=== PATIENT | female | born 1995 | race American Indian/Alaskan Native ===

== ENCOUNTER 2017-01-23 05:29 | Emergency (ER) | payer OTHER ==
[2017-01-23 05:37] VITALS: BMI 20.5
[2017-01-23 05:44] VITALS: RESP 16; TEMP 98.7; O2SAT 100
[2017-01-23] MEDS ORDERED: TraMADol/Apap 37.5/325 mg Tab PO STA (05:48)
--- NOTE | 2017-01-23 05:50 | ED PDOC ---
Arrival/HPI - General Chief Complaint: Back Pain Time Seen by Provider: 01/23/17 05:32 Historian: Patient - History of Present Illness Narrative History of Present Illness (Text): 01/23/17 05:47 Veronica Alcala is a 21 year old female, with no significant past medical history , presents to the emergency department complaining of right low back pain since yesterday night. States that pain is worse with movement. Patient took Tylenol for pain for minimal relief. Denies any fever, chills, headache, difficulty breathing, nausea, vomiting, bowel/urinary incontinence, urinary symptoms, or any other complaints at this time. Time/Duration: Other (yesterday ) Symptom Onset: Gradual Symptom Course: Unchanged Severity Level: Mild Activities at Onset: Light Past Medical History - Provider Review Nursing Documentation Reviewed: Yes - Infectious Disease Hx of Infectious Diseases: None - Genitourinary/Gynecological Other/Comment: Ovarian cyst - Psychiatric Hx Substance Use: No - Surgical History Other/Comment: ovarian cyst removed 2010 - Anesthesia Hx Anesthesia: Yes Hx Anesthesia Reactions: No Hx Malignant Hyperthermia: No Family/Social History - Physician Review Nursing Documentation Reviewed: Yes Family/Social History: No Known Family HX Smoking Status: Never Smoked Hx Alcohol Use: Yes Frequency of alcohol use: Socially Hx Substance Use: No Allergies/Home Meds Allergies/Adverse Reactions: Allergies No Known Allergies Allergy (Verified 01/20/16 16:25) Review of Systems - Physician Review All systems were reviewed & negative as marked: Yes - Review of Systems Constitutional: Normal. absent: Fatigue, Fevers Respiratory: Normal. absent: SOB, Cough, Sputum Cardiovascular: Normal. absent: Chest Pain, Palpitations Gastrointestinal: Normal. absent: Abdominal Pain, Stool Changes Genitourinary Female: Normal. absent: Dysuria, Frequency, Hematuria Musculoskeletal: Back Pain (Right flank pain ) Neurological: Normal. absent: Headache, Dizziness Physical Exam Vital Signs Reviewed: Yes Vital Signs Temp Pulse Resp BP Pulse Ox 01/23/17 05:44 98.7 F 70 16 114/45 L 100 Temperature: Afebrile Blood Pressure: Normal Pulse: Regular Respiratory Rate: Normal Appearance: Positive for: Well-Appearing, Non-Toxic, Comfortable Pain Distress: None Mental Status: Positive for: Alert and Oriented X 3 - Systems Exam Head: Present: Atraumatic, Normocephalic Pupils: Present: PERRL Conjunctiva: Present: Normal Mouth: Present: Moist Mucous Membranes. No: Dry Respiratory/Chest: Present: Clear to Auscultation, Good Air Exchange. No: Respiratory Distress, Accessory Muscle Use Cardiovascular: Present: Regular Rate and Rhythm, Normal S1, S2. No: Murmurs Abdomen: Present: Normal Bowel Sounds. No: Tenderness, Distention, Peritoneal Signs, Rebound, Guarding Back: Present: CVA Tenderness (Tenderness to palpation R CVA ). No: Midline Tenderness, Paraspinal Tenderness, Pain with Leg Raise Neurological: Present: GCS=15, CN II-XII Intact, Speech Normal. No: Motor Func Grossly Intact, Normal Sensory Function Skin: Present: Warm, Dry, Normal Color. No: Rashes Psychiatric: Present: Alert, Oriented x 3, Normal Insight, Normal Concentration Medical Decision Making ED Course and Treatment: 01/23/17 05:51 Impression: A 21 year old female who presents to the emergency department complaining of right flank pain since yesterday. Differential Diagnosis include but are not limited to: UTI vs. Renal colic Plan: -- Toradol -- Ultracet -- POC urine pregancy -- Urinalysis -- Reassess and disposition Progress Notes: 01/23/17 06:54 XR is negative and urine is negative and patient is feeling better, consistent with muscular strain - will d/c on nsaid, muscle relaxant, and tramadol and f/u medical clinic. - Lab Interpretations Lab Results: Lab Results 01/23/17 05:50: Urine Color Yellow, Urine Appearance Clear, Urine pH 6.0, Ur Specific [place] 1.020, Urine Protein Negative, Urine Glucose (UA) Negative, Urine Ketones Negative, Urine Blood Negative, Urine Nitrate Negative, Urine Bilirubin Negative, Urine Urobilinogen 0.2, Ur Leukocyte Esterase Negative - RAD Interpretation Radiology Orders: 01/23/17 05:53 LS SPINE WITH OBL > 18 YRS OLD [RAD] Stat - Medication Orders Current Medication Orders: Discontinued Medications Ketorolac Tromethamine (Toradol) 60 mg IM STAT STA Stop: 01/23/17 05:47 Last Admin: 01/23/17 05:55 Dose: 60 mg Tramadol/Acetaminophen (Ultracet 37.5/325 Mg) 1 tab PO STAT STA Stop: 01/23/17 05:49 Last Admin: 01/23/17 05:55 Dose: 1 tab - Scribe Statement The provider has reviewed the documentation as recorded by the Thomasibe Mina Horn Provider Attestation: All medical record entries made by the Thomasibcaterina were at my direction and personally dictated by me. I have reviewed the chart and agree that the record accurately reflects my personal performance of the history, physical exam, medical decision making, and the department course for this patient. I have also personally directed, reviewed, and agree with the discharge instructions and disposition. Disposition/Present on Arrival - Present on Arrival Any Indicators Present on Arrival: No History of DVT/PE: No History of Uncontrolled Diabetes: No Urinary Catheter: No History of Decub. Ulcer: No History Surgical Site Infection Following: Obstetrical/Gynecological Surgery - Disposition Have Diagnosis and Disposition been Completed?: Yes Diagnosis: Low back pain Disposition: HOME/ ROUTINE Disposition Time: 06:55 Patient Plan: Discharge Condition: GOOD Discharge Instructions (ExitCare): Acute Low Back Pain (ED) Additional Instructions: Avoid heavy lifting. Take the medications as prescribed. Follow up with primary care. Return to the emergency department if any new concerning symptoms. Prescriptions: Baclofen [Lioresal] 1 cap PO TID PRN #15 tab PRN Reason: Pain, Moderate (4-7) Naproxen [Naprosyn] 500 mg PO BID PRN #20 tab PRN Reason: Pain traMADol [Ultram] 1 tab PO Q8H PRN #10 tab PRN Reason: Pain, Severe (8-10) Referrals: Yaakov Mcclain DO [Staff Provider] - Follow up with primary Forms: WORK NOTE
[2017-01-23 06:38] LABS: URINE BILIRUBIN NEGATIVE (NEGATIVE); URINE BLOOD NEGATIVE (NEGATIVE); URINE GLUCOSE (UA) NEGATIVE (NEGATIVE); URINE KETONE NEGATIVE (NEGATIVE); URINE LEUKOCYTE ESTERASE NEGATIVE Leu/uL (NEGATIVE); URINE PROTEIN NEGATIVE mg/dL (<30 mg/dL); URINE UROBILINOGEN 0.2 E.U./dL (<1 E.U./dL)
[2017-01-23 06:39] LABS: URINE APPEARANCE CLEAR (CLEAR); URINE COLOR YELLOW (YELLOW)
[2017-01-23 07:03] VITALS: BP 101/59; PULSE 57
--- NOTE | 2017-01-23 09:04 | RAD ---
PROCEDURE: Radiographs of the Lumbar Spine. HISTORY: low back pain COMPARISON: No prior. FINDINGS: BONES: Normal alignment. No listhesis. No fracture. DISC SPACES: Unremarkable. OTHER FINDINGS: None. IMPRESSION: Unremarkable radiographs of the lumbar spine.
== END 2017-01-23 07:11 | disposition home or self-care (01) ==
LOC: ED 05:29
DX: M54.5 Low back pain (principal)
CPT/HCPCS: 72110; 81003; 96372; 99283; J1885

== ENCOUNTER 2017-04-13 03:33 | Emergency (ER) | payer SELFPAY ==
[2017-04-13 03:40] VITALS: RESP 16; TEMP 98.3; O2SAT 99
[2017-04-13 03:46] VITALS: BMI 22.8
--- NOTE | 2017-04-13 03:51 | ED PDOC ---
Arrival/HPI - General Time Seen by Provider: 04/13/17 03:34 Historian: Patient - History of Present Illness Narrative History of Present Illness (Text): 04/13/17 03:47 Veronica Alcala is a 21 year old female, whose past medical history includes ovarian cyst, who presents to the Emergency department complaining of lower abdominal pain. Patient states her menstrual period started yesterday, but notes vaginal bleeding is heavier than usual with blood clots and associated lower abdominal cramping. Patient states she went through 2 pads and 1 tampon over 2 hours. Patient states she has not taken any medication for pain. Patient denies any fever, shortness of breath, nausea, vomiting, urinary symptoms, back pain, headache, dizziness, or any other complaints. Symptom Onset: Gradual Symptom Course: Unchanged Activities at Onset: Rest, Light Context: Home Past Medical History - Provider Review Nursing Documentation Reviewed: Yes - Infectious Disease Hx of Infectious Diseases: None - Genitourinary/Gynecological Other/Comment: Ovarian cyst - Psychiatric Hx Substance Use: No - Surgical History Other/Comment: ovarian cyst removed 2010 - Anesthesia Hx Anesthesia: Yes Hx Anesthesia Reactions: No Hx Malignant Hyperthermia: No Family/Social History - Physician Review Nursing Documentation Reviewed: Yes Family/Social History: Unknown Family HX Smoking Status: Never Smoked Hx Alcohol Use: Yes Hx Substance Use: No Allergies/Home Meds Allergies/Adverse Reactions: Allergies No Known Allergies Allergy (Verified 04/13/17 03:40) Home Medications: Home Meds Medication Instructions Recorded Confirmed No Known Home Med 04/13/17 04/13/17 Review of Systems - Physician Review All systems were reviewed & negative as marked: Yes - Review of Systems Constitutional: Normal. absent: Fevers Eyes: Normal ENT: Normal Respiratory: Normal. absent: SOB, Cough Cardiovascular: Normal. absent: Chest Pain Gastrointestinal: Abdominal Pain. absent: Diarrhea, Nausea, Vomiting Genitourinary Female: Vaginal Bleeding. absent: Dysuria, Frequency, Hematuria, Urine Output Changes Musculoskeletal: Normal. absent: Back Pain, Neck Pain Skin: Normal. absent: Rash Neurological: Normal. absent: Headache, Dizziness Endocrine: Normal Hemo/Lymphatic: Normal Psychiatric: Normal Physical Exam Vital Signs Reviewed: Yes Vital Signs Temp Pulse Resp BP Pulse Ox 04/13/17 03:40 98.3 F 79 16 118/81 99 Temperature: Afebrile Blood Pressure: Normal Pulse: Regular Respiratory Rate: Normal Appearance: Positive for: Well-Appearing, Non-Toxic, Comfortable Pain Distress: None Mental Status: Positive for: Alert and Oriented X 3 - Systems Exam Head: Present: Atraumatic, Normocephalic Pupils: Present: PERRL Extroacular Muscles: Present: EOMI Conjunctiva: Present: Normal Mouth: Present: Moist Mucous Membranes Neck: Present: Normal Range of Motion Respiratory/Chest: Present: Clear to Auscultation, Good Air Exchange. No: Respiratory Distress, Accessory Muscle Use Cardiovascular: Present: Regular Rate and Rhythm, Normal S1, S2. No: Murmurs Abdomen: Present: Normal Bowel Sounds. 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 No: Adenexal Tenderness, Cervical Motion Tendernes Back: Present: Normal Inspection Upper Extremity: Present: Normal Inspection. No: Cyanosis, Edema Lower Extremity: Present: Normal Inspection. No: Edema Neurological: Present: GCS=15, CN II-XII Intact, Speech Normal Skin: Present: Warm, Dry, Normal Color. No: Rashes Psychiatric: Present: Alert, Oriented x 3, Normal Insight, Normal Concentration Medical Decision Making ED Course and Treatment: 04/13/17 03:47 Impression: 21 year old female complaining of lower abdominal cramping and heavy vaginal bleeding. Differential Diagnosis included but are not limited to: dysmenorrhea vs. menorrhagia Plan: -- Labs, beta-HCG -- Urinalysis -- IV fluids -- Reassess and disposition Prior Visits: Notes and results from previous visits were reviewed. On 01/23/2017, pt was seen in the right lower back pain. Pt was d/c home. Progress Notes: 04/13/17 05:28 On reevaluation the patient feels better and is in no acute distress. I have discussed the results and plan with the patient, who expresses understanding. Patient given the opportunity to ask question, all questions were answered and there is agreement with the plan to discharge the patient home. Patient is stable for discharge. Patient was instructed to follow up with physician/clinic in 1-2 days or return if symptoms persist/worsen or new concerning symptoms arise. Re-evaluation Time: 05:28 Reassessment Condition: Re-examined, Improved - Lab Interpretations Lab Results: 04/13/17 04:14 04/13/17 04:14 Lab Results 04/13/17 04:14: Urine Color Yellow, Urine Appearance Sl cloudy, Urine pH 6.0, Ur Specific [place] >= 1.030, Urine Protein 30 H, Urine Glucose (UA) Negative, Urine Ketones Negative, Urine Blood Large H, Urine Nitrate Negative, Urine Bilirubin Negative, Urine Urobilinogen 0.2, Ur Leukocyte Esterase Negative, Urine RBC Tntc, Urine WBC 0 - 2, Ur Epithelial Cells 0 - 2, Urine HCG, Qual Negative 04/13/17 04:14: Beta HCG, Quant < 2.39 04/13/17 04:14: Sodium 140, Potassium 4.3, Chloride 105, Carbon Dioxide 24, Anion Gap 15, BUN 12, Creatinine 0.6, Est GFR ( Amer) > 60, Est GFR (Non- Af Amer) > 60, Random Glucose 95, Calcium 9.1, Total Bilirubin 0.3, AST 27, ALT 30, Alkaline Phosphatase 47, Total Protein 7.9, Albumin 4.3, Globulin 3.6, Albumin/Globulin Ratio 1.2 04/13/17 04:14: PT 11.2, INR 1.04, APTT 26.4 04/13/17 04:14: WBC 5.7, RBC 4.43, Hgb 10.9 L, Hct 33.8 L, MCV 76.3 L, MCH 24.6 L, MCHC 32.2, RDW 18.1 H, Plt Count 307, MPV 10.4, Gran % 44.7 L, Lymph % (Auto ) 40.3 H, [place] % (Auto) 11.3 H, Eos % (Auto) 3.3, Baso % (Auto) 0.4, Gran # 2.54 , Lymph # 2.3, [place] # 0.6, Eos # 0.2, Baso # 0.02 I have reviewed the lab results: Yes - Medication Orders Current Medication Orders: Sodium Chloride (Sodium Chloride 0.9%) 1,000 mls @ 100 mls/hr IV .Q10H STA Stop: 04/13/17 13:52 Last Admin: 04/13/17 04:11 Dose: 100 mls/hr - Scribe Statement The provider has reviewed the documentation as recorded by the Birdie Lewis Provider Scribe Attestation: All medical record entries made by the Thomasibcaterina were at my direction and personally dictated by me. I have reviewed the chart and agree that the record accurately reflects my personal performance of the history, physical exam, medical decision making, and the department course for this patient. I have also personally directed, reviewed, and agree with the discharge instructions and disposition. Disposition/Present on Arrival - Present on Arrival Any Indicators Present on Arrival: No History of DVT/PE: No History of Uncontrolled Diabetes: No Urinary Catheter: No History Surgical Site Infection Followin - Disposition Have Diagnosis and Disposition been Completed?: Yes Diagnosis: Dysmenorrhea Disposition: HOME/ ROUTINE Disposition Time: 05:28 Patient Problems: Current Active Problems Problem Status Onset Dysmenorrhea Acute Condition: GOOD Discharge Instructions (ExitCare): Dysmenorrhea (ED) Additional Instructions: follow up with your nurse gynecology today
[2017-04-13] MEDS ORDERED: Sodium Chloride 0.9% 1,000 ML IV STA (03:53)
[2017-04-13 04:29] LABS: BASO # 0.02 K/mm3 (0.0-2.0); BASO % 0.4 % (0.0-3.0); EOS # 0.2 (0.0-0.7); EOS % 3.3 % (1.5-5.0); GRAN # 2.54 (1.4-6.5); GRAN % 44.7 % (50.0-68.0); HEMOGLOBIN 10.9 gm/dL (12.0-16.0); LYMPH # 2.3 (1.2-3.4); LYMPH % 40.3 % (22.0-35.0); MEAN CELL VOLUME 76.3 fL (80.0-105.0); MEAN CORPUSCULAR HEMOGLOBIN 24.6 pg (25.0-35.0); MEAN CORPUSCULAR HGB CONC 32.2 g/dl (31.0-37.0); MEAN PLATELET VOLUME 10.4 fl (7.0-11.0); MONO # 0.6 (0.1-0.6); MONO % 11.3 % (1.0-6.0); PLATELET COUNT 307 10^3/uL (120.0-450.0); RBC 4.43 10^6/uL (3.5-6.1); RED CELL DISTRIBUTION WIDTH 18.1 % (11.5-14.5); WHITE BLOOD COUNT 5.7 10^3/ul (4.5-11.0)
[2017-04-13 04:30] LABS: URINE BILIRUBIN NEGATIVE (NEGATIVE); URINE BLOOD LARGE (NEGATIVE); URINE GLUCOSE (UA) NEGATIVE (NEGATIVE); URINE LEUKOCYTE ESTERASE NEGATIVE Leu/uL (NEGATIVE); URINE NITRATE NEGATIVE (NEGATIVE); URINE PROTEIN 30 mg/dL (<30 mg/dL); URINE UROBILINOGEN 0.2 E.U./dL (<1 E.U./dL)
[2017-04-13 04:33] LABS: URINE APPEARANCE SL CLOUDY (CLEAR); URINE COLOR YELLOW (YELLOW)
[2017-04-13 04:36] LABS: HCG,QUALITATIVE URINE NEGATIVE (NEGATIVE)
[2017-04-13 04:38] LABS: URINE EPITHELIAL CELLS 0 - 2 /hpf (0-5); URINE RBC TNTC /hpf (0-2); URINE WBC 0 - 2 /hpf (0-6)
[2017-04-13 04:42] LABS: INR 1.04 (0.93-1.08); PARTIAL THROMBOPLASTIN TIME 26.4 Seconds (23.7-30.8); PROTHROMBIN TIME 11.2 Seconds (9.9-11.8)
[2017-04-13 04:48] LABS: ALB/GLOB RATIO 1.2 (1.1-1.8); ALBUMIN 4.3 g/dL (3.0-4.8); ALT/SGPT 30 U/L (7-56); AST/SGOT 27 U/L (15-39); BLOOD UREA NITROGEN 12 mg/dL (7-21); CALCIUM 9.1 mg/dL (8.4-10.5); GFR AFRICAN-AMERICAN > 60; GFR NON-AFRICAN AMERICAN > 60
[2017-04-13 05:41] VITALS: BP 118/72; PULSE 70
== END 2017-04-13 05:41 | disposition home or self-care (01) ==
LOC: ED 03:33
DX: N94.6 Dysmenorrhea, unspecified (principal)
CPT/HCPCS: 80053; 81001; 84702; 84703; 85025; 85610; 85730; 99284; J7040

== ENCOUNTER 2017-07-20 05:18 | Emergency (ER) | payer OTHER ==
[2017-07-20 05:18] VITALS: BMI 22.8
[2017-07-20] MEDS ORDERED: Sodium Chloride 0.9% 1,000 ML IV SCH (05:45)
--- NOTE | 2017-07-20 05:48 | ED PDOC ---
Arrival/HPI - General Chief Complaint: Headache Time Seen by Provider: 07/20/17 05:26 Historian: Patient - History of Present Illness Narrative History of Present Illness (Text): 07/20/17 05:45 Veronica Alcala is a 21 year old female, 11 weeks and whose past medical history includes ovarian cyst, who presents to the emergency department complaining of right sided headache and back pain for a few hours. Patient denies any fever, chills, chest pain, shortness of breath, nausea, vomiting, diarrhea, urinary symptoms, neck pain, dizziness, or any other complaints. Time/Duration: 4-6 hours Symptom Onset: Gradual Symptom Course: Unchanged Severity Level: Mild Activities at Onset: Rest Context: Home Past Medical History - Provider Review Nursing Documentation Reviewed: Yes - Infectious Disease Hx of Infectious Diseases: None - Genitourinary/Gynecological Other/Comment: Ovarian cyst - Psychiatric Hx Substance Use: No - Surgical History Other/Comment: ovarian cyst removed 2010 - Anesthesia Hx Anesthesia: Yes Hx Anesthesia Reactions: No Hx Malignant Hyperthermia: No Family/Social History - Physician Review Nursing Documentation Reviewed: Yes Family/Social History: No Known Family HX Smoking Status: Never Smoked Hx Alcohol Use: No Hx Substance Use: No Allergies/Home Meds Allergies/Adverse Reactions: Allergies No Known Allergies Allergy (Verified 07/20/17 05:38) Review of Systems - Review of Systems Constitutional: absent: Fevers, Night Sweats Eyes: absent: Vision Changes ENT: absent: Hearing Changes Respiratory: absent: SOB, Cough Cardiovascular: absent: Chest Pain Gastrointestinal: absent: Abdominal Pain Genitourinary Female: absent: Dysuria, Frequency Musculoskeletal: Back Pain. absent: Arthralgias Skin: absent: Rash, Pruritis Neurological: Headache Endocrine: absent: Diaphoresis Hemo/Lymphatic: absent: Adenopathy Psychiatric: absent: Anxiety Physical Exam Vital Signs Reviewed: Yes Vital Signs Temp Pulse Resp BP Pulse Ox 07/20/17 07:13 72 18 100/60 98 07/20/17 06:01 98.1 F 82 16 100/61 98 - Systems Exam Head: Present: Atraumatic, Normocephalic Pupils: Present: PERRL Extroacular Muscles: Present: EOMI Conjunctiva: Present: Normal Mouth: Present: Moist Mucous Membranes Neck: Present: Normal Range of Motion Respiratory/Chest: Present: Clear to Auscultation, Good Air Exchange. No: Respiratory Distress, Accessory Muscle Use Cardiovascular: Present: Regular Rate and Rhythm, Normal S1, S2. No: Murmurs Abdomen: Present: Normal Bowel Sounds. No: Tenderness, Distention, Peritoneal Signs Back: Present: Normal Inspection Upper Extremity: Present: Normal Inspection. No: Cyanosis, Edema Lower Extremity: Present: Normal Inspection. No: Edema Neurological: Present: GCS=15, CN II-XII Intact, Speech Normal Skin: Present: Warm, Dry, Normal Color. No: Rashes Psychiatric: Present: Alert, Oriented x 3, Normal Insight, Normal Concentration Medical Decision Making ED Course and Treatment: 07/20/17 05:48 Impression: 21 year old female complaining of right-sided headache and back pain for a few hours. Differential Diagnosis included but are not limited to: Plan: -- Urinalysis -- Reglan and IV fluids -- Reassess and disposition Prior Visits: Notes and results from previous visits were reviewed. Patient last seen in the ED on 04/13/17 for lower abdominal pain. Patient was discharged home. Progress Notes: Re-evaluation Time: 06:45 Reassessment Condition: Re-examined, Improved - Lab Interpretations Microbiology Results: Microbiology Results 07/20/17 03:51 Urine,Clean Catch Urine Culture - Final No Growth (<1,000 CFU/ML) Lab Results: Lab Results 07/20/17 05:45: Urine Color Yellow, Urine Appearance Sl cloudy, Urine pH 7.0, Ur Specific [place] 1.020, Urine Protein Negative, Urine Glucose (UA) Negative, Urine Ketones Negative, Urine Blood Negative, Urine Nitrate Negative, Urine Bilirubin Negative, Urine Urobilinogen 0.2, Ur Leukocyte Esterase Small H, Urine RBC 0 - 2, Urine WBC 5 - 10, Ur Epithelial Cells 1 - 3, Urine Bacteria Small I have reviewed the lab results: Yes - Medication Orders Current Medication Orders: Discontinued Medications Acetaminophen (Tylenol 325mg Tab) 650 mg PO STAT STA Stop: 07/20/17 06:52 Last Admin: 07/20/17 07:12 Dose: 650 mg MAR Pain/Vitals Document 07/20/17 07:12 SS (Rec: 07/20/17 07:12 SS [id number]) Pain Reassessment Is This A Pain ReAssessment? No Sleep Is patient sleeping during reassessment? 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 Cephalexin Monohydrate (Keflex) 500 mg PO STAT STA PRN Reason: Protocol Stop: 07/20/17 06:54 Last Admin: 07/20/17 07:12 Dose: 500 mg Sodium Chloride (Sodium Chloride 0.9%) 1,000 mls @ 80 mls/hr IV .[id number] KEI Last Admin: 07/20/17 06:09 Dose: 80 mls/hr eMAR Start Stop Document 07/20/17 06:09 SS (Rec: 07/20/17 06:10 SS [id number]) Intravenous Solution Start Date 07/20/17 Start Time 06:09 End Date 07/20/17 End time 07:09 Total Infusion Time 60 Metoclopramide HCl (Reglan) 10 mg IVP ONCE ONE Stop: 07/20/17 05:42 Last Admin: 07/20/17 06:09 Dose: 10 mg IVP Administration Document 07/20/17 06:09 SS (Rec: 07/20/17 06:09 SS [id number]) Charges for Administration # of IVP Administrations 1 - Scribe Statement The provider has reviewed the documentation as recorded by the Birdie Villalta Provider Scribe Attestation: All medical record entries made by the Thomasibcaterina were at my direction and personally dictated by me. I have reviewed the chart and agree that the record accurately reflects my personal performance of the history, physical exam, medical decision making, and the department course for this patient. I have also personally directed, reviewed, and agree with the discharge instructions and disposition. Disposition/Present on Arrival - Present on Arrival Any Indicators Present on Arrival: No History of DVT/PE: No History of Uncontrolled Diabetes: No Urinary Catheter: No History of Decub. Ulcer: No History Surgical Site Infection Following: None - Disposition Have Diagnosis and Disposition been Completed?: Yes Diagnosis: Migraine, UTI (urinary tract infection) Disposition: HOME/ ROUTINE Disposition Time: 06:50 Condition: GOOD Discharge Instructions (ExitCare): Migraine Headache (ED), Urinary Tract Infection in (ED) Prescriptions: Cephalexin [Keflex] 500 mg PO BID #14 capsule Referrals: [facility] Carolina Zhu, [Non-Staff] - Follow up with primary Forms: [facility] ([place])
[2017-07-20 06:13] LABS: URINE BILIRUBIN NEGATIVE (NEGATIVE); URINE BLOOD NEGATIVE (NEGATIVE); URINE GLUCOSE (UA) NEGATIVE (NEGATIVE); URINE KETONE NEGATIVE (NEGATIVE); URINE LEUKOCYTE ESTERASE SMALL Leu/uL (NEGATIVE); URINE PROTEIN NEGATIVE mg/dL (<30 mg/dL); URINE UROBILINOGEN 0.2 E.U./dL (<1 E.U./dL)
[2017-07-20 06:15] LABS: URINE APPEARANCE SL CLOUDY (CLEAR); URINE COLOR YELLOW (YELLOW)
[2017-07-20 06:23] VITALS: TEMP 98.1; O2SAT 98
[2017-07-20 06:27] LABS: URINE RBC 0 - 2 /hpf (0-2)
[2017-07-20 06:28] LABS: URINE BACTERIA SMALL (NEG)
[2017-07-20 07:13] VITALS: BP 100/60; PULSE 72; RESP 18
== END 2017-07-20 07:14 | disposition home or self-care (01) ==
LOC: ED 05:18
DX: O23.41 Unspecified infection of urinary tract in pregnancy, first trimester (principal); O26.891 Other specified pregnancy related conditions, first trimester; G43.909 Migraine, unspecified, not intractable, without status migrainosus; Z3A.11 11 weeks gestation of pregnancy
CPT/HCPCS: 81001; 87086; 96361; 96374; 99285; J2765; J7040

== ENCOUNTER 2017-09-03 20:38 | Emergency (ER) | payer OTHER ==
[2017-09-03 20:41] VITALS: BMI 24.1
[2017-09-03 20:43] VITALS: TEMP 98.5
--- NOTE | 2017-09-03 21:00 | ED PDOC ---
Arrival/HPI - General Chief Complaint: Female Genitourinary Time Seen by Provider: 09/03/17 20:50 Historian: Patient - History of Present Illness Narrative History of Present Illness (Text): 09/03/17 20:56 A 22 year old female with , who is 17 weeks , presents to the emergency department complaining of lower abdominal pain for 1 week. Patient states her pain worsened today causing her to come in for further evaluation. Patient denies any fever, chills, nausea, vomiting, diarrhea, vaginal bleeding, vaginal discharge, chest pain, shortness of breath or any other complaints. Time/Duration: 1 week Symptom Course: Worsening Quality: Other Context: Home Past Medical History - Provider Review Nursing Documentation Reviewed: Yes - Infectious Disease Hx of Infectious Diseases: None - Cardiac Hx Cardiac Disorders: No - Pulmonary Hx Respiratory Disorders: No - Neurological Hx Neurological Disorder: No - HEENT Hx HEENT Disorder: No - Renal Hx Renal Disorder: No - Endocrine/Metabolic Hx Endocrine Disorders: No - Hematological/Oncological Hx Blood Disorders: No - Integumentary Hx Dermatological Disorder: No - Musculoskeletal/Rheumatological Hx Musculoskeletal Disorders: No - Gastrointestinal Hx Gastrointestinal Disorders: No - Genitourinary/Gynecological Other/Comment: Ovarian cyst - Psychiatric Hx Psychophysiologic Disorder: No Hx Substance Use: No - Surgical History Other/Comment: ovarian cyst removed 2010 - Anesthesia Hx Anesthesia: Yes Hx Anesthesia Reactions: No Hx Malignant Hyperthermia: No Family/Social History - Physician Review Nursing Documentation Reviewed: Yes Family/Social History: No Known Family HX Smoking Status: Never Smoked Hx Alcohol Use: No Hx Substance Use: No Allergies/Home Meds Allergies/Adverse Reactions: Allergies No Known Allergies Allergy (Verified 09/03/17 20:41) Home Medications: Home Meds Medication Instructions Recorded Confirmed Folic Acid 0 mg PO DAILY 09/03/17 09/03/17 Vit 108/Iron/Folic AC 1 each PO DAILY 09/03/17 09/03/17 [ One Tablet] Review of Systems - Physician Review All systems were reviewed & negative as marked: Yes - Review of Systems Constitutional: absent: Fevers, Night Sweats Respiratory: absent: SOB Cardiovascular: absent: Chest Pain Gastrointestinal: Abdominal Pain. absent: Diarrhea, Nausea, Vomiting Genitourinary Female: absent: Vaginal Bleeding, Vaginal Discharge Physical Exam Vital Signs Reviewed: Yes Vital Signs Temp Pulse Resp BP Pulse Ox 09/03/17 22:37 80 16 103/87 100 09/03/17 20:43 98.5 F 77 19 102/61 98 09/03/17 20:42 98.5 F 78 17 102/61 98 Temperature: Afebrile Blood Pressure: Normal Pulse: Regular Respiratory Rate: Normal Appearance: Positive for: Well-Appearing, Non-Toxic, Comfortable Pain Distress: None Mental Status: Positive for: Alert and Oriented X 3 - Systems Exam Head: Present: Atraumatic, Normocephalic Pupils: Present: PERRL Extroacular Muscles: Present: EOMI Conjunctiva: Present: Normal Mouth: Present: Moist Mucous Membranes Neck: Present: Normal Range of Motion Respiratory/Chest: Present: Clear to Auscultation, Good Air Exchange. No: Respiratory Distress, Accessory Muscle Use Cardiovascular: Present: Regular Rate and Rhythm, Normal S1, S2. No: Murmurs Abdomen: Present: Tenderness (Minimal suprapubic tenderness), Normal Bowel Sounds. No: Distention, Peritoneal Signs, Rebound, Guarding Back: Present: Normal Inspection Upper Extremity: Present: Normal Inspection. No: Cyanosis, Edema Lower Extremity: Present: Normal Inspection. No: Edema Neurological: Present: GCS=15, CN II-XII Intact, Speech Normal Skin: Present: Warm, Dry, Normal Color. No: Rashes Psychiatric: Present: Alert, Oriented x 3, Normal Insight, Normal Concentration Medical Decision Making ED Course and Treatment: 09/03/17 20:56 Impression: A 22 year old female, 17 weeks , with suprapubic abdominal pain. Plan: -- Transvaginal ultrasound -- Labs -- Urinalysis -- Reassess and disposition Progress Notes: Report Date: 09/03/2017 21:35 EXAM: US After First Trimester, Transabdominal Dictated and Authenticated by: Alcon Beltre MD IMPRESSION: Single live intrauterine gestation. 09/04/17 11:31 iup confirmed pain improved. urine with asymptomatic bacteruria will treat as pt . return rpecautions advised. - Lab Interpretations Lab Results: 09/03/17 21:05 09/03/17 21:05 Lab Results 09/03/17 22:04: Urine Color Yellow, Urine Appearance Sl cloudy, Urine pH 6.5, Ur Specific [place] 1.020, Urine Protein Negative, Urine Glucose (UA) Negative, Urine Ketones Negative, Urine Blood Negative, Urine Nitrate Negative, Urine Bilirubin Negative, Urine Urobilinogen 0.2, Ur Leukocyte Esterase Small H, Urine RBC 0 - 2, Urine WBC 2 - 5, Ur Epithelial Cells 4 - 5, Amorphous Sediment Few, Urine Bacteria Few, Urine HCG, Qual Positive 09/03/17 21:05: Beta HCG, Quant [id number] H 09/03/17 21:05: Sodium 136, Potassium 3.9, Chloride 104, Carbon Dioxide 22, Anion Gap 14, BUN 6 L, Creatinine 0.5 L, Est GFR ( Amer) > 60, Est GFR ( Non-Af Amer) > 60, Random Glucose 79, Calcium 9.2, Total Bilirubin 0.3, AST 24, ALT 24, Alkaline Phosphatase 35 L, Total Protein 7.1, Albumin 3.8, Globulin 3.4 , Albumin/Globulin Ratio 1.1 09/03/17 21:05: PT 12.0, INR 1.10 H, APTT 28.7 09/03/17 21:05: WBC 8.0 D, RBC 3.98, Hgb 11.7 L, Hct 33.9 L, MCV 85.2, MCH 29.4 , MCHC 34.5, RDW 15.8 H, Plt Count 214, MPV 10.1, Gran % 63.7, Lymph % (Auto) 24.6, Fisher % (Auto) 8.5 H, Eos % (Auto) 2.9, Baso % (Auto) 0.3, Gran # 5.08, Lymph # 2.0, Fisher # 0.7 H, Eos # 0.2, Baso # 0.02 I have reviewed the lab results: Yes - RAD Interpretation Radiology Orders: 09/03/17 20:51 AGE [US] Stat - Medication Orders Current Medication Orders: Discontinued Medications Acetaminophen (Tylenol 325mg Tab) 650 mg PO STAT STA Stop: 09/03/17 21:37 Last Admin: 09/03/17 21:59 Dose: 650 mg MAR Pain/Vitals Document 09/03/17 21:59 HI (Rec: 09/03/17 21:59 HI [id number]) Pain Reassessment Is This A Pain ReAssessment? No Sleep Is patient sleeping during reassessment? No Presence of Pain Presence of Pain Yes - Scribe Statement The provider has reviewed the documentation as recorded by the Thomasibe Celestina Powell Provider Scribe Attestation: All medical record entries made by the Scribe were at my direction and personally dictated by me. I have reviewed the chart and agree that the record accurately reflects my personal performance of the history, physical exam, medical decision making, and the department course for this patient. I have also personally directed, reviewed, and agree with the discharge instructions and disposition. Disposition/Present on Arrival - Present on Arrival Any Indicators Present on Arrival: No History of DVT/PE: No History of Uncontrolled Diabetes: No Urinary Catheter: No History of Decub. Ulcer: No History Surgical Site Infection Following: None - Disposition Have Diagnosis and Disposition been Completed?: Yes Diagnosis: Threatened Disposition: HOME/ ROUTINE Disposition Time: 07:00 Condition: STABLE Discharge Instructions (ExitCare): Threatened Miscarriage (ED), Urinary Tract Infection in (ED) Additional Instructions: follow up with your obgyn. return to er with any worsening symptoms or concerns. Prescriptions: Cefpodoxime [Vantin] 100 mg PO BID #14 tab [facility] [[facility]] - Follow up with primary Cody Tolliver MD [Staff Provider] - Follow up with primary Forms: [employer] ([place]), WORK NOTE
[2017-09-03 21:27] LABS: BASO # 0.02 K/mm3 (0.0-2.0); BASO % 0.3 % (0.0-3.0); EOS # 0.2 (0.0-0.7); EOS % 2.9 % (1.5-5.0); GRAN # 5.08 (1.4-6.5); GRAN % 63.7 % (50.0-68.0); HEMATOCRIT 33.9 % (36.0-48.0); LYMPH % 24.6 % (22.0-35.0); MEAN CELL VOLUME 85.2 fl (80.0-105.0); MEAN CORPUSCULAR HEMOGLOBIN 29.4 pg (25.0-35.0); MEAN CORPUSCULAR HGB CONC 34.5 g/dl (31.0-37.0); MEAN PLATELET VOLUME 10.1 fl (7.0-11.0); MONO # 0.7 (0.1-0.6); MONO % 8.5 % (1.0-6.0); RED CELL DISTRIBUTION WIDTH 15.8 % (11.5-14.5)
[2017-09-03 21:33] LABS: INR 1.1 (0.93-1.08); PARTIAL THROMBOPLASTIN TIME 28.7 Seconds (25.1-36.5)
--- NOTE | 2017-09-03 21:35 | US ---
EXAM: US After First Trimester, Transabdominal CLINICAL HISTORY: 22 years old, female; Pain; complicated by abdominal or pelvic pain; Generalized abdominal pain; Second trimester; Gestational age or lmp: 04/09/2017; ; Additional info: Abd pain and prengnat TECHNIQUE: Real-time transabdominal obstetrical ultrasound of the maternal pelvis and a second or third trimester with image documentation. COMPARISON: No relevant prior studies available. FINDINGS: Fetus: Single live intrauterine gestation. Heart rate: heart rate of 153 beats per minute. Presentation: Transverse. Placenta: Anterior placenta. Amniotic fluid: Normal. Anatomy: No gross anomaly is appreciated. BIOMETRICS Gestational age by US: Estimated gestational age of 18 weeks 3 days by measurements. EFW: Estimated weight of 240 g. BPD: 4.0 cm, correlating with 18 weeks 0 days. HC: 15.5 cm, correlating with 18 weeks 3 days. AC: 13.0 cm, correlating with 18 weeks 4 days. FL: 2.7 cm, correlating with 18 weeks 3 days. MATERNAL: Uterus: Unremarkable. No myometrial mass. Cervix: No cervical dilatation or effacement. Adnexa: Ovaries not visualized. No adnexal masses. Free fluid: No significant free fluid. Other findings: No cardiac activity detected. IMPRESSION: 1. Single live intrauterine gestation.
[2017-09-03 21:37] LABS: ALB/GLOB RATIO 1.1 (1.1-1.8); ALKALINE PHOSPHATASE 35 U/L (38-126); ALT/SGPT 24 U/L (7-56); AST/SGOT 24 U/L (14-36); BILIRUBIN,TOTAL 0.3 mg/dL (0.2-1.3); BLOOD UREA NITROGEN 6 mg/dL (7-21); CALCIUM 9.2 mg/dL (8.4-10.5); CARBON DIOXIDE 22 mmol/L (21-33); CHLORIDE 104 mmol/L (98-107); GFR AFRICAN-AMERICAN > 60; GLUCOSE,RANDOM 79 mg/dL (70-110); POTASSIUM 3.9 mmol/L (3.6-5.0); SODIUM 136 mmol/L (132-148); TOTAL PROTEIN 7.1 g/dL (5.8-8.3)
[2017-09-03 22:14] LABS: PH,URINE 6.5 (4.7-8.0); URINE BILIRUBIN NEGATIVE (NEGATIVE); URINE BLOOD NEGATIVE (NEGATIVE); URINE GLUCOSE (UA) NEGATIVE (NEGATIVE); URINE KETONE NEGATIVE (NEGATIVE); URINE LEUKOCYTE ESTERASE SMALL Leu/uL (NEGATIVE); URINE PROTEIN NEGATIVE mg/dL (<30 mg/dL); URINE UROBILINOGEN 0.2 E.U./dL (<1 E.U./dL)
[2017-09-03 22:30] LABS: URINE APPEARANCE SL CLOUDY (CLEAR); URINE COLOR YELLOW (YELLOW)
[2017-09-03 22:32] LABS: URINE AMORPHOUS SEDIMENT FEW; URINE BACTERIA FEW (NEG); URINE RBC 0 - 2 /hpf (0-2)
[2017-09-03 22:43] VITALS: BP 103/87; PULSE 80; RESP 16; O2SAT 100
== END 2017-09-03 22:43 | disposition home or self-care (01) ==
LOC: ED 20:38
DX: O20.0 Threatened abortion (principal); Z3A.17 17 weeks gestation of pregnancy

== ENCOUNTER 2017-12-12 08:17 | Emergency (ER) | payer OTHER ==
[2017-12-12 08:36] VITALS: BMI 27.2
[2017-12-12 08:45] VITALS: RESP 18; TEMP 98.1
[2017-12-12] MEDS ORDERED: Amoxicillin-Clav 875-125 mg Tab PO STA (09:20)
--- NOTE | 2017-12-12 09:20 | ED PDOC ---
Arrival/HPI - General Chief Complaint: Abnormal Skin Integrity Time Seen by Provider: 12/12/17 09:09 Historian: Patient - History of Present Illness Narrative History of Present Illness (Text): 12/12/17 09:10 22 y/o female, no significant pmh, nkda, approx. 32 weeks , c/o rt. buttock region abscess x 3 days. Pt. stated that she was shaving, noted to have a painful lump about 2 days ago, no fever or chills, no perianal pain, no night sweat, no rash, no chills, no change in vision, no pelvic pain, no vaginal bleeding or abdominal pain, no other medical or psychological complaints. Past Medical History - Provider Review Nursing Documentation Reviewed: Yes - Infectious Disease Hx of Infectious Diseases: None - Cardiac Hx Cardiac Disorders: No - Pulmonary Hx Respiratory Disorders: No - Neurological Hx Neurological Disorder: No - HEENT Hx HEENT Disorder: No - Renal Hx Renal Disorder: No - Endocrine/Metabolic Hx Endocrine Disorders: No - Hematological/Oncological Hx Blood Disorders: No - Integumentary Hx Dermatological Disorder: No - Musculoskeletal/Rheumatological Hx Musculoskeletal Disorders: No - Gastrointestinal Hx Gastrointestinal Disorders: No - Genitourinary/Gynecological Other/Comment: Ovarian cyst - Psychiatric Hx Psychophysiologic Disorder: No Hx Substance Use: No - Surgical History Other/Comment: ovarian cyst removed 2010 - Anesthesia Hx Anesthesia: Yes Hx Anesthesia Reactions: No Hx Malignant Hyperthermia: No Family/Social History - Physician Review Nursing Documentation Reviewed: Yes Family/Social History: Unknown Family HX Smoking Status: Never Smoked Hx Alcohol Use: No Hx Substance Use: No Allergies/Home Meds Allergies/Adverse Reactions: Allergies No Known Allergies Allergy (Verified 09/27/17 21:31) Home Medications: Home Meds Medication Instructions Recorded Confirmed Vit 108/Iron/Folic AC 1 each PO DAILY 09/03/17 12/12/17 [ One Tablet] Review of Systems - Review of Systems Constitutional: absent: Fatigue, Fevers Eyes: absent: Vision Changes ENT: absent: Hearing Changes Respiratory: absent: SOB, Cough Cardiovascular: absent: Chest Pain Gastrointestinal: absent: Abdominal Pain, Nausea, Vomiting Skin: Skin Lesions, Abscess. absent: Rash, Pruritis, Laceration, Ulcer, Cellulitis Neurological: absent: Headache Psychiatric: absent: Anxiety, Depression, Suicidal Ideation Physical Exam Vital Signs Reviewed: Yes Vital Signs Temp Pulse Resp BP Pulse Ox 12/12/17 08:32 98.1 F 88 18 102/62 99 Temperature: Afebrile Blood Pressure: Normal Pulse: Regular Respiratory Rate: Normal Appearance: Positive for: Well-Appearing, Non-Toxic, Comfortable Pain Distress: Mild Mental Status: Positive for: Alert and Oriented X 3 - Systems Exam Head: Present: Atraumatic, Normocephalic Pupils: Present: PERRL Extroacular Muscles: Present: EOMI Conjunctiva: Present: Normal Mouth: Present: Moist Mucous Membranes Neck: Present: Normal Range of Motion Respiratory/Chest: Present: Clear to Auscultation, Good Air Exchange. No: Respiratory Distress, Accessory Muscle Use Cardiovascular: Present: Regular Rate and Rhythm, Normal S1, S2. No: Murmurs Abdomen: Present: Normal Bowel Sounds. No: Tenderness, Distention, Peritoneal Signs Genitourinary/Pelvic Exam: Present: Other (pt. declined. ) Back: Present: Normal Inspection Upper Extremity: Present: Normal Inspection. No: Cyanosis, Edema Lower Extremity: Present: Normal Inspection. 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 2cm diameter fluctuant abscess noted on rt. buttock region with no perinal abscess, no cellulitis, no streaking, no ulcers, no other absces noted on the thigh/pubic or underwear region. ), Normal Color Psychiatric: Present: Alert, Oriented x 3, Normal Insight, Normal Concentration Medical Decision Making ED Course and Treatment: 12/12/17 09:24 -augmentin/tylenol -wound culture -sensation intact 12/12/17 10:32 -Pt. has no urinary symptoms, will be placed on makayla augmentin. -Sensation intact, motor 5/5, wound irrigated with normal saline, clean with Betadine, sterile procedure as usual, #11 incision made with approx. 3cc of yellow fluctuant abscess drained, wound culture obtained, plain 1/2" packing inserted, hemostasis obtained, gauze dressing, sensation intact, motor 5/5, minimal blood loss less than 2cc, pt. tolerated the procedure well with no complication. Pain decreased and pt. feel much better. Pt. has no pelvic or abdominal pain or vaginal bleeding. -Discharge home with augmentin, tylenol, dressing and packing needs to be change on day 2 which you can see your own pmd/general surgeon/obgyn or return to the ER for wound check, follow up on the wound culture as well from the ER, return to the ER for any new or worsening signs or symptoms. - Medication Orders Current Medication Orders: Discontinued Medications Acetaminophen (Tylenol 325mg Tab) 650 mg PO STAT STA Stop: 12/12/17 09:21 Last Admin: 12/12/17 10:09 Dose: 650 mg MAR Pain/Vitals Document 12/12/17 10:09 EQ (Rec: 12/12/17 10:10 EQ [id number]) Pain Reassessment Is This A Pain ReAssessment? No Sleep Is patient sleeping during reassessment? No Presence of Pain Presence of Pain Yes Pain Scale Used Pain Scale Used Numeric Location Pain Location Body Site groin Description Constant Intensity 7 Scale Used Numeric Pain Behavior Facial Grimacing Aggravating Factors Changing Position Alleviating Factors Medication Amoxicillin/Clavulanate Potassium (Augmentin 875 Mg-125 Mg Tab) 1 tab PO STAT STA PRN Reason: Protocol Stop: 12/12/17 09:21 Last Admin: 12/12/17 10:09 Dose: 1 tab - PA / [employer]RARY [employer]CULATION DEPARTMENT CHIEF / Resident Statement MD/DO has reviewed & agrees with the documentation as recorded. Disposition/Present on Arrival - Present on Arrival Any Indicators Present on Arrival: No History of DVT/PE: No History of Uncontrolled Diabetes: No Urinary Catheter: No History of Decub. Ulcer: No History Surgical Site Infection Following: None - Disposition Have Diagnosis and Disposition been Completed?: Yes Diagnosis: Abscess Disposition: HOME/ ROUTINE Disposition Time: 09:27 Patient Plan: Discharge Condition: IMPROVED Discharge Instructions (ExitCare): Skin Abscess, Abscess Incision and Drainage (DC) Additional Instructions: -Discharge home with augmentin, tylenol, dressing and packing needs to be change on day 2 which you can see your own pmd/general surgeon/obgyn or return to the ER for wound check, follow up on the wound culture as well from the ER, return to the ER for any new or worsening signs or symptoms. Prescriptions: Acetaminophen [Tylenol 325mg tab] 2 tab PO QID PRN #30 tab PRN Reason: Other Amoxicillin/Clavulanate [Augmentin 875 MG-125 MG] 1 tab PO BID #20 tab Referrals: Bobo Brewer MD [Medical Doctor] - Follow up with primary Livan Fair [Medical Doctor] - Follow up with primary Forms: [employer] ([place]), WORK NOTE
[2017-12-12 11:42] VITALS: BP 131/74; PULSE 83; O2SAT 100
== END 2017-12-12 11:42 | disposition home or self-care (01) ==
LOC: ED 08:17
DX: L02.31 Cutaneous abscess of buttock (principal)

== ENCOUNTER 2017-12-14 12:30 | Emergency (ER) | payer OTHER ==
[2017-12-14 12:30] VITALS: BMI 27.2
[2017-12-14 12:37] VITALS: BP 96/64; PULSE 84; RESP 16; TEMP 98.5; O2SAT 97
--- NOTE | 2017-12-14 13:10 | ED PDOC ---
Arrival/HPI - General Chief Complaint: Wound Check Time Seen by Provider: 12/14/17 13:08 Historian: Patient - History of Present Illness Narrative History of Present Illness (Text): 12/14/17 13:08 22 y/o female, no significant pmh, nkda, approx. 32 weeks , came to ED for wound check after I&D x 2 days ago. Patient stated she developed a buttock abscess x 5 days days. Patient had I&D x 2 days ago. Patient stated packing came off yesterday. Patient stated abscess has been healing well. Patient denies new complains. Time/Duration: Other (see hpi) Context: Home Past Medical History - Provider Review Nursing Documentation Reviewed: Yes - Infectious Disease Hx of Infectious Diseases: None - Cardiac Hx Cardiac Disorders: No - Pulmonary Hx Respiratory Disorders: No - Neurological Hx Neurological Disorder: No - HEENT Hx HEENT Disorder: No - Renal Hx Renal Disorder: No - Endocrine/Metabolic Hx Endocrine Disorders: No - Hematological/Oncological Hx Blood Disorders: No - Integumentary Hx Dermatological Disorder: Yes Other/Comment: ABSCESS - Musculoskeletal/Rheumatological Hx Musculoskeletal Disorders: No - Gastrointestinal Hx Gastrointestinal Disorders: No - Genitourinary/Gynecological Hx Genitourinary Disorders: Yes Other/Comment: Ovarian cyst - Psychiatric Hx Psychophysiologic Disorder: No Hx Substance Use: No - Surgical History Other/Comment: ovarian cyst removed 2010 - Anesthesia Hx Anesthesia: Yes Hx Anesthesia Reactions: No Hx Malignant Hyperthermia: No Family/Social History - Physician Review Nursing Documentation Reviewed: Yes Family/Social History: Other (noncontributory) Smoking Status: Never Smoked Hx Alcohol Use: No Hx Substance Use: No Allergies/Home Meds Allergies/Adverse Reactions: Allergies No Known Allergies Allergy (Verified 12/14/17 12:32) Home Medications: Home Meds Medication Instructions Recorded Confirmed Vit 108/Iron/Folic AC 1 each PO DAILY 09/03/17 12/14/17 [ One Tablet] Review of Systems - Review of Systems Constitutional: Normal. absent: Fatigue, Weight Change, Fevers Eyes: Normal ENT: Normal Respiratory: Normal. absent: SOB, Cough Cardiovascular: Normal. absent: Chest Pain Gastrointestinal: Normal. absent: Abdominal Pain, Nausea, Vomiting Genitourinary Female: Normal. absent: Dysuria, Frequency, Hematuria, Vaginal Bleeding, Vaginal Discharge Musculoskeletal: Normal. absent: Back Pain Skin: Other (wound check) Neurological: Normal Endocrine: Normal Hemo/Lymphatic: Normal Psychiatric: Normal Physical Exam Vital Signs Temp Pulse Resp BP Pulse Ox 12/14/17 12:32 98.5 F 84 16 96/64 L 97 Temperature: Afebrile Blood Pressure: Normal Pulse: Regular Respiratory Rate: Normal Appearance: Positive for: Well-Appearing, Non-Toxic, Comfortable Pain Distress: None Mental Status: Positive for: Alert and Oriented X 3 - Systems Exam Head: Present: Atraumatic, Normocephalic Pupils: Present: PERRL Extroacular Muscles: Present: EOMI Conjunctiva: Present: Normal Mouth: Present: Moist Mucous Membranes Pharnyx: Present: Normal. No: ERYTHEMA, EXUDATE, TONSILS ENLARGED Neck: Present: Normal Range of Motion. No: Meningeal Signs, MIDLINE TENDERNESS Respiratory/Chest: Present: Clear to Auscultation, Good Air Exchange. No: Respiratory Distress, Accessory Muscle Use, Wheezes, Retracting, Rhonchi Cardiovascular: Present: Regular Rate and Rhythm, Normal S1, S2. No: Murmurs Abdomen: No: Tenderness Upper Extremity: Present: Normal Inspection, Normal ROM Lower Extremity: Present: Normal Inspection, Normal ROM Neurological: Present: GCS=15, CN II-XII Intact, Speech Normal, Motor Func Grossly Intact, Normal Sensory Function, Normal Cerebellar Funct, Gait Normal Skin: Present: Warm, Dry, Normal Color, Other ((+) right buttock healing wound without surrounding erythema, or discharge. The wound area is nontender). No: Rashes Psychiatric: Present: Alert, Oriented x 3, Normal Insight, Normal Concentration Medical Decision Making ED Course and Treatment: 12/14/17 13:08 Re-evaluation. Patient feels better. Discussed results and plan with patient who expresses understanding. All questions answered and there is agreement with the plan to discharge home with instructions. Patient stable for discharge. Return if symptoms persist or worsen. Re-evaluation Time: 13:09 Reassessment Condition: Re-examined, Improved Disposition/Present on Arrival - Present on Arrival Any Indicators Present on Arrival: No History of DVT/PE: No History of Uncontrolled Diabetes: No Urinary Catheter: No History of Decub. Ulcer: No History Surgical Site Infection Following: None - Disposition Have Diagnosis and Disposition been Completed?: Yes Diagnosis: Encounter for wound re-check Disposition: HOME/ ROUTINE Disposition Time: 13:09 Patient Plan: Discharge Patient Problems: Current Active Problems Problem Status Onset Encounter for wound re-check Acute Condition: GOOD Additional Instructions: Call your FOREST OFFICER doctor for follow up visit in 1-2 days. Continue with antibiotic as instructed. return to emergency if wound become painful or discharge appears. Referrals: [facility] [Outside] - [facility] - Follow up with primary Forms: [employer] (Slovak)
== END 2017-12-14 13:17 | disposition home or self-care (01) ==
LOC: ED 12:30
DX: Z51.89 Encounter for other specified aftercare (principal)

== ENCOUNTER 2018-02-05 22:12 | Emergency (ER) | payer MEDICAID, OTHER ==
[2018-02-05 22:16] VITALS: BMI 25.0
[2018-02-05 22:21] VITALS: BP 101/63; TEMP 98.5
[2018-02-05 22:50] LABS: PH,URINE 6.5 (4.7-8.0); URINE APPEARANCE CLEAR (CLEAR); URINE BILIRUBIN NEGATIVE (NEGATIVE); URINE BLOOD LARGE (NEGATIVE); URINE COLOR YELLOW (YELLOW); URINE GLUCOSE (UA) NEGATIVE (NEGATIVE); URINE LEUKOCYTE ESTERASE NEGATIVE Leu/uL (NEGATIVE); URINE PROTEIN TRACE mg/dL (<30 mg/dL)
[2018-02-05 23:00] LABS: URINE BACTERIA SMALL (NEG); URINE EPITHELIAL CELLS 0 - 2 /hpf (0-5); URINE RBC TNTC /hpf (0-2)
[2018-02-05 23:38] VITALS: PULSE 75; RESP 18; O2SAT 99
--- NOTE | 2018-02-06 01:42 | ED PDOC ---
Arrival/HPI - General Chief Complaint: Wound Check Time Seen by Provider: 02/05/18 22:34 Historian: Patient - History of Present Illness Narrative History of Present Illness (Text): 02/06/18 01:39 22 year old female, whose past medical history includes a , pt currently on Keflex prescribed by OBGYN, presents to the emergency department complaining of a bulge at her Incision area. Patient notes intermittent dysuria. Patient states she had a 1 week ago. Patient denies any pain, fever, chills, chest pain, shortness of breath, nausea, vomiting, diarrhea, back pain, neck pain, headache, dizziness, or any other complaints. Time/Duration: Prior to Arrival Symptom Onset: Sudden Symptom Course: Unchanged Activities at Onset: Light Context: Home Past Medical History - Provider Review Nursing Documentation Reviewed: Yes - Infectious Disease Hx of Infectious Diseases: None - Cardiac Hx Cardiac Disorders: No - Pulmonary Hx Asthma: Yes - Neurological Hx Neurological Disorder: No - HEENT Hx HEENT Disorder: No - Renal Hx Renal Disorder: No - Endocrine/Metabolic Hx Endocrine Disorders: No - Hematological/Oncological Hx Blood Disorders: No - Integumentary Hx Dermatological Disorder: Yes Other/Comment: ABSCESS - Musculoskeletal/Rheumatological Hx Musculoskeletal Disorders: No - Gastrointestinal Hx Gastrointestinal Disorders: No - Genitourinary/Gynecological Hx Genitourinary Disorders: Yes Other/Comment: ruptured Ovarian cyst- removed - Psychiatric Hx Psychophysiologic Disorder: No Hx Substance Use: No - Surgical History Hx Section: Yes (01/29) Other/Comment: ruptured ovarian cyst removed 2010 - Anesthesia Hx Anesthesia: Yes Hx Anesthesia Reactions: No Hx Malignant Hyperthermia: No Family/Social History - Physician Review Nursing Documentation Reviewed: Yes Family/Social History: Unknown Family HX Smoking Status: Never Smoked Hx Alcohol Use: No Hx Substance Use: No Allergies/Home Meds Allergies/Adverse Reactions: Allergies No Known Allergies Allergy (Verified 01/11/18 14:54) Home Medications: Home Meds Medication Instructions Recorded Confirmed Acetaminophen with Codeine 1 tab PO PRN PRN 02/05/18 02/05/18 [Tylenol with Codeine #3 Tablet] Cephalexin [Keflex] 500 mg PO QID 02/05/18 02/05/18 Review of Systems - Physician Review All systems were reviewed & negative as marked: Yes - Review of Systems Constitutional: Normal Eyes: Normal ENT: Normal Respiratory: Normal. absent: SOB, Cough Cardiovascular: Normal. absent: Chest Pain Gastrointestinal: Normal. absent: Abdominal Pain, Diarrhea, Nausea, Vomiting Genitourinary Female: Dysuria. absent: Frequency, Hematuria Musculoskeletal: Normal. absent: Back Pain, Neck Pain Skin: Abscess ( incision area) Neurological: Normal Endocrine: Normal Hemo/Lymphatic: Normal Psychiatric: Normal Physical Exam Vital Signs Reviewed: Yes Vital Signs Temp Pulse Resp BP Pulse Ox 02/05/18 23:37 75 18 99 02/05/18 22:20 98.5 F 67 15 101/63 100 Temperature: Afebrile Blood Pressure: Normal Pulse: Regular Respiratory Rate: Normal Appearance: Positive for: Well-Appearing, Non-Toxic, Comfortable Pain Distress: None Mental Status: Positive for: Alert and Oriented X 3 - Systems Exam Head: Present: Atraumatic, Normocephalic Pupils: Present: PERRL Extroacular Muscles: Present: EOMI Conjunctiva: Present: Normal Mouth: Present: Moist Mucous Membranes Neck: Present: Normal Range of Motion Respiratory/Chest: Present: Clear to Auscultation, Good Air Exchange. No: Respiratory Distress, Accessory Muscle Use Cardiovascular: Present: Regular Rate and Rhythm, Normal S1, S2. No: Murmurs Abdomen: Present: Scars (mild swelling to the right side of scar ). No: Tenderness, Distention, Peritoneal Signs Back: Present: Normal Inspection Upper Extremity: Present: Normal Inspection. No: Cyanosis, Edema Lower Extremity: Present: Normal Inspection. No: Edema Neurological: Present: GCS=15, CN II-XII Intact, Speech Normal Skin: Present: Warm, Dry, Normal Color. No: Rashes Psychiatric: Present: Alert, Oriented x 3, Normal Insight, Normal Concentration Medical Decision Making ED Course and Treatment: 02/06/18 01:46 Impression: 22 year old female who presents to the emergency department complaining of a bulge to her incision area. Plan: -- Urinalysis -- Urine Culture -- Reassess and disposition Progress Notes: - Lab Interpretations Lab Results: Lab Results 02/05/18 22:47: Urine Color Yellow, Urine Appearance Clear, Urine pH 6.5, Ur Specific Lane 1.020, Urine Protein Trace H, Urine Glucose (UA) Negative, Urine Ketones Negative, Urine Blood Large H, Urine Nitrate Negative, Urine Bilirubin Negative, Urine Urobilinogen 4.0 H, Ur Leukocyte Esterase Negative, Urine RBC Tntc, Urine WBC 1 - 3, Ur Epithelial Cells 0 - 2, Urine Bacteria Small - Scribe Statement The provider has reviewed the documentation as recorded by the Scribe Tawnya Douglass All medical record entries made by the Scribe were at my direction and personally dictated by me. I have reviewed the chart and agree that the record accurately reflects my personal performance of the history, physical exam, medical decision making, and the department course for this patient. I have also personally directed, reviewed, and agree with the discharge instructions and disposition. Disposition/Present on Arrival - Present on Arrival Any Indicators Present on Arrival: No History of DVT/PE: No History of Uncontrolled Diabetes: No Urinary Catheter: No History of Decub. Ulcer: No History Surgical Site Infection Following: None - Disposition Have Diagnosis and Disposition been Completed?: Yes Diagnosis: Hematoma following procedure Disposition: HOME/ ROUTINE Disposition Time: 23:00 Condition: GOOD Additional Instructions: Thank you for letting us take care of you today. The emergency medical care you received today was directed at your acute symptoms. If you were prescribed any medication, please fill it and take as directed. It may take several days for your symptoms to resolve. Return to the Emergency Department if your symptoms worsen, do not improve, or if you have any other problems. Please contact your doctor or call one of the physicians/clinics you have been referred to that are listed on the Patient Visit Information form that is included in your discharge packet. Bring any paperwork you were given at discharge with you along with any medications you are taking to your follow up visit. Our treatment cannot replace ongoing medical care by a primary care provider (PCP) outside of the emergency department. Thank you for allowing the [facility] team to be part of your care today. Follow up with your [facility] doctor in 2-3 days for re-evaluation and further management. Referrals: Sancho Zhu, [Primary Care Provider] - Follow up with primary Forms: [facility] ([place])
== END 2018-02-05 23:37 | disposition home or self-care (01) ==
LOC: ED 22:12
DX: L76.32 Postprocedural hematoma of skin and subcutaneous tissue following other procedure (principal); Y83.8 Other surgical procedures as the cause of abnormal reaction of the patient, or of later complication, without mention of misadventure at the time of the procedure; Y92.89 Other specified places as the place of occurrence of the external cause